=== PATIENT | female | born 1980 | race Caucasian/White ===

== ENCOUNTER 2016-07-05 22:33 | Emergency (ER) | payer MEDICAID ==
[2015-12-09 23:14] VITALS: BMI 22.5
[~2016-07-05 22:33] MED LIST: CARAFATE1 G PO; DOXYCYCLINE HY100 M2 PO; HYDROCODON-ACE1 EAC7 PO; HYDROCODONE-APA1 TAB PO; KLONOPIN1 MG PO; PERCOCET 10/3251 TA1 PO
== END 2016-07-05 23:55 | disposition home or self-care (01) ==
LOC: D.ER 22:33
DX: S93.601A Unspecified sprain of right foot, initial encounter (principal); X58.XXXA Exposure to other specified factors, initial encounter; Y93.89 Activity, other specified; Y92.89 Other specified places as the place of occurrence of the external cause; F17.200 Nicotine dependence, unspecified, uncomplicated

== ENCOUNTER 2016-07-24 19:39 | Emergency (ER) | payer MEDICAID ==
[2015-12-09 23:14] VITALS: BMI 22.5
== END 2016-07-24 22:43 | disposition left against medical advice (07) ==
LOC: D.ER 19:39
DX: T15.92XA Foreign body on external eye, part unspecified, left eye, initial encounter (principal); X58.XXXA Exposure to other specified factors, initial encounter; Y93.89 Activity, other specified; Y92.89 Other specified places as the place of occurrence of the external cause

== ENCOUNTER 2016-11-14 20:48 | Emergency (ER) | payer MEDICAID ==
[2015-12-09 23:14] VITALS: BMI 22.5
== END 2016-11-15 00:02 | disposition home or self-care (01) ==
LOC: D.ER 20:48
DX: M25.462 Effusion, left knee (principal); M25.562 Pain in left knee

== ENCOUNTER 2016-12-02 12:33 | Emergency (ER) | payer MEDICAID ==
[2015-12-09 23:14] VITALS: BMI 22.5
== END 2016-12-02 14:15 | disposition home or self-care (01) ==
LOC: D.ER 12:33
DX: N73.2 Unspecified parametritis and pelvic cellulitis (principal); M54.9 Dorsalgia, unspecified; B19.20 Unspecified viral hepatitis C without hepatic coma; F17.200 Nicotine dependence, unspecified, uncomplicated

== ENCOUNTER 2017-01-06 04:44 | Emergency (ER) | payer MEDICAID ==
[2015-12-09 23:14] VITALS: BMI 22.5
[2017-01-06 05:47] LABS: APPEARANCE CLOUDY (CLEAR); COLOR YELLOW (YELLOW)
[2017-01-06 05:48] LABS: BACTERIA MODERATE /hpf (NONE SEEN); BILIRUBIN NEGATIVE (NEGATIVE); EPITHELIAL CELLS 0-5 /hpf (0-5); GLUCOSE NEGATIVE (NEGATIVE); KETONE NEGATIVE (NEGATIVE); NITRITE POSITIVE (NEGATIVE); PROTEIN NEGATIVE (NEGATIVE); UROBILINOGEN NORMAL (NORMAL); WHITE CELLS - URINE 25-50 /hpf (0-5)
== END 2017-01-06 06:45 | disposition home or self-care (01) ==
LOC: D.ER 04:44
PROVIDERS: Emergency Medicine
DX: N39.0 Urinary tract infection, site not specified (principal); F17.200 Nicotine dependence, unspecified, uncomplicated; B19.20 Unspecified viral hepatitis C without hepatic coma

== ENCOUNTER 2017-01-29 19:44 | Emergency (ER) | payer MEDICAID ==
[2015-12-09 23:14] VITALS: BMI 22.5
[2017-01-29 20:30] LABS: APPEARANCE CLEAR (CLEAR); BILIRUBIN NEGATIVE (NEGATIVE); COLOR YELLOW (YELLOW); GLUCOSE NEGATIVE (NEGATIVE); KETONE NEGATIVE (NEGATIVE); NITRITE NEGATIVE (NEGATIVE); PROTEIN NEGATIVE (NEGATIVE); SPECIFIC GRAVITY 1.015 (1.005-1.020); UROBILINOGEN NORMAL (NORMAL)
== END 2017-01-29 21:05 | disposition home or self-care (01) ==
LOC: D.ER 19:44
PROVIDERS: Family Medicine
DX: R10.9 Unspecified abdominal pain (principal); S39.012A Strain of muscle, fascia and tendon of lower back, initial encounter; X58.XXXA Exposure to other specified factors, initial encounter; Y93.89 Activity, other specified; Y92.019 Unspecified place in single-family (private) house as the place of occurrence of the external cause; B19.20 Unspecified viral hepatitis C without hepatic coma; F17.200 Nicotine dependence, unspecified, uncomplicated

== ENCOUNTER 2017-04-28 19:43 | Emergency (ER) | payer MEDICAID ==
[2015-12-09 23:14] VITALS: BMI 22.5
== END 2017-04-28 21:04 | disposition home or self-care (01) ==
LOC: D.ER 19:43
DX: F45.9 Somatoform disorder, unspecified (principal); F41.9 Anxiety disorder, unspecified; B19.20 Unspecified viral hepatitis C without hepatic coma; F17.200 Nicotine dependence, unspecified, uncomplicated

== ENCOUNTER 2017-05-08 15:09 | Emergency (ER) | payer MEDICAID ==
[2015-12-09 23:14] VITALS: BMI 22.5
== END 2017-05-08 15:59 | disposition home or self-care (01) ==
LOC: D.ER 15:09
DX: F41.9 Anxiety disorder, unspecified (principal); M79.642 Pain in left hand; B19.20 Unspecified viral hepatitis C without hepatic coma

== ENCOUNTER 2017-06-22 22:08 | Emergency (ER) | payer MEDICAID ==
[2015-12-09 23:14] VITALS: BMI 22.5
== END 2017-06-22 23:59 | disposition home or self-care (01) ==
LOC: D.ER 22:08
DX: M25.462 Effusion, left knee (principal); S80.02XA Contusion of left knee, initial encounter; V49.9XXA Car occupant (driver) (passenger) injured in unspecified traffic accident, initial encounter; Y93.89 Activity, other specified; Y92.410 Unspecified street and highway as the place of occurrence of the external cause; B19.20 Unspecified viral hepatitis C without hepatic coma

== ENCOUNTER 2017-06-27 15:15 | Emergency (ER) | payer MEDICAID ==
[2015-12-09 23:14] VITALS: BMI 22.5
== END 2017-06-27 16:53 | disposition home or self-care (01) ==
LOC: D.ER 15:15
DX: M25.462 Effusion, left knee (principal); M25.562 Pain in left knee

== ENCOUNTER → 2017-07-05 07:39 | Outpatient (CLI) | payer MEDICAID ==
[2015-12-09 23:14] VITALS: BMI 22.5
[~2017-07-05 07:39] MED LIST changes: +IBUPROFEN600 MG PO; +ZANTAC 7575 MG
== END | disposition home or self-care (01) ==
LOC: D.MRI 07:39
DX: M25.562 Pain in left knee (principal)

== ENCOUNTER 2017-07-05 13:41 | Emergency (ER) | payer MEDICAID ==
[2015-12-09 23:14] VITALS: BMI 22.5
[~2017-07-05 13:41] MED LIST changes: -IBUPROFEN600 MG PO; -ZANTAC 7575 MG
[2017-08-01] MEDS ORDERED: HYDROCODONE-APA1 TAB PO (08:21)
== END 2017-07-05 15:19 | disposition home or self-care (01) ==
LOC: D.ER 13:41
DX: M25.562 Pain in left knee (principal); B19.20 Unspecified viral hepatitis C without hepatic coma

== ENCOUNTER 2017-08-02 06:52 | Day surgery (SDC) | payer MEDICAID ==
[~2017-08-02] VITALS: Ht 167.6 cm; Wt 65.8 kg
--- NOTE | ~2017-08-02 | OP ---
PATIENT NAME: OLIVER LARA MEDICAL RECORD: [id number] :84 LOCATION:[facility] ADMISSION DATE: SURGEON: BURAK SIERRA MD DATE OF OPERATION: 08/02/2017 PREOPERATIVE DIAGNOSES: Recurrent ACL tear of the left knee, medial meniscus tear. POSTOPERATIVE DIAGNOSES: Recurrent ACL tear of the left knee, lateral meniscal tear, and medial meniscal tear. PROCEDURES: 1. Arthroscopic-assisted anterior cruciate ligament reconstruction - allograft, left knee. 2. Arthroscopic partial medial meniscectomy, left knee. 3. Arthroscopic partial lateral meniscectomy, left knee. SURGEON: Burak Sierra MD ANESTHESIA: General. INTRAOPERATIVE COMPLICATIONS: None. SUMMARY OF PATHOLOGIC FINDINGS: Complex tears of both medial and lateral menisci, consistent with preoperative monitoring on the medial side. The patient did have a complex tear of the lateral meniscus as well. The anterior cruciate ligament previously placed graft was torn completely, also consistent with the MRI. OPERATIVE SUMMARY IN DETAIL: After obtaining the appropriate preoperative orthopaedic surgery consent as well as anesthetic consultation, evaluation, and clearance, the patient was brought to the operating room and placed on the operating table in the supine position. After adequate general laryngeal mask airway was administered, tourniquet was placed about the proximal aspect of left lower extremity. Left lower extremity was then prepped and draped in routine sterile fashion. Leg was elevated, exsanguinated, and tourniquet was inflated to 350 mmHg. Routine inferolateral portal was established followed by superomedial portal and inferomedial portal. 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 All the other findings as discussed above were noted. Attention was first turned to debridement of the old ACL stump. Formal notchplasty was performed as it was at the previous operation. This was cleaned out, making space for the new graft. The medial meniscus was then approached. Combination of resector and meniscotome were utilized to debride the posterior aspect of the medial meniscus off its complex tear. Then, with the leg in a [id number] position, the lateral meniscus likewise required debridement with both meniscotome and arthroscopic resector. Having completed this, the tibial tunnel was created using an 11 baton reamer followed by passage of the spade tip at the anatomic portion on the femoral notch and out the lateral cortex and then through the skin. Having completed this, the low profile 11-mm reamer was used to create a 30-mm deep tunnel. Guide strings were then passed using the Beath pin. The guide strings were then used to pass the graft. The graft seated nicely using the TightRope deployment system from [employer] before anchoring distally. The knee was ranged several times. At this point, incision was elongated. The previous bicortical screw was found and used as a post again. Excellent OPERATIVE REPORT [id number] OLIVER LARA purchase was achieved. The patient's preoperative Henrietta's and pivot shift were negative. Having completed this, incisions were closed in usual fashion. Sterile dressings were applied. Tourniquet was deflated. The patient was awakened and taken to recovery room in stable condition. All final needle and sponge counts were correct. TRANSINT:[id number] Voice Confirmation ID: [id number] DOCUMENT ID: [id number] RIGO REYNA, BURAK SPENCE at 1538 CC: [id number] DICTATION DATE: 08/02/17 1256 TOGGLE PRESS FOLDER AND FEEDER: 08/02/17 1320 [facility] [address] [id number]
[2017-08-02 07:12] LABS: HEMATOCRIT 35.6 % (36.0-48.0); HEMOGLOBIN 11.7 g/dL (12-16); MCH 28.5 pg (26.0-34.0); MCHC 32.9 g/dL (31.0-37.0); MCV 86.8 fL (80.0-100.0); MEAN PLATELET VOLUME 9.8 fL (7.4-10.4); RBC 4.1 10x6/uL (4.00-5.40); RDW 14.4 % (11.5-14.5); WBC 5.7 10x3/uL (4.8-10.8)
[2017-08-02 09:19] VITALS: Ht 167.6 cm; Wt 65.8 kg
[2017-08-02] MEDS ORDERED: ZANTAC 7575 MG (09:32)
[2017-08-02] MEDS ORDERED: HYDROCODONE-APA1 TAB PO (12:50)
== END 2017-08-02 15:00 | disposition home or self-care (01) ==
LOC: D.OPS 06:52 → D.PAN 10:00 → D.OPS 11:30
PROVIDERS: Anesthesiology
DX: S83.512A Sprain of anterior cruciate ligament of left knee, initial encounter (principal); S83.232A Complex tear of medial meniscus, current injury, left knee, initial encounter; S83.272A Complex tear of lateral meniscus, current injury, left knee, initial encounter; Z01.812 Encounter for preprocedural laboratory examination; X58.XXXA Exposure to other specified factors, initial encounter

== ENCOUNTER 2017-08-13 21:41 | Day surgery (SDC) | payer MEDICAID ==
[~2017-08-13] VITALS: Ht 167.6 cm; Wt 70.5 kg
--- NOTE | ~2017-08-13 | OP ---
PATIENT NAME: OLIVER LARA MEDICAL RECORD: [id number] :84 [facility] ADMISSION DATE: SURGEON: DAVE BIRMINGHAM MD DATE OF OPERATION: 08/14/2017 PREOPERATIVE DIAGNOSIS: Right tubal ectopic . POSTOPERATIVE DIAGNOSIS: Right tubal ectopic . PROCEDURE: Laparoscopic right salpingectomy. SURGEON: Dave Birmingham ANESTHESIA: General endotracheal. INTRAVENOUS FLUIDS: Per anesthesia record. ESTIMATED BLOOD LOSS: Approximately 50 cc intraoperatively with 500 cc of blood in pelvis upon entry. SPECIMENS: Included right fallopian tube and products of conception. FINDINGS: 1. Hemoperitoneum noted with bleeding noted from the right fallopian tube. 2. Dilated distal end of the fallopian tube with likely ectopic . 3. Grossly normal-appearing ovaries bilaterally and grossly normal-appearing uterus and left fallopian tube. PROCEDURE: The patient was taken to the operating room, where general anesthesia was achieved without difficulty. The patient was prepped and draped in normal sterile fashion in the dorsal lithotomy position in the [facility]. At this point, a Patel catheter was placed and a sponge stick was placed in the vagina for uterine elevation. Attention was then turned to the umbilicus, where a 5-mm incision was made in the inferior aspect and a 5-mm bladeless trocar was used to enter the intraperitoneal space under direct visualization of the laparoscope. Once placement was confirmed visually, the introducer was removed and the patient was insufflated. Opening pressure was found to be less than 5 mmHg. The patient was insufflated. Of note, was an obvious hemoperitoneum. All other pelvic anatomy could be identified. Irrigation and suction was performed of the hemoperitoneum. Survey was performed of the pelvic anatomy. The right fallopian tube was found to be distended and bleeding from the fimbriated end. At this point, a second port was placed in the midline by making a 5-mm incision approximately 5 cm above the pubic symphysis in the midline. A 5-mm bladeless trocar was then used to enter the intraperitoneal space under direct visualization of the laparoscope. Attention was then turned to the left lower quadrant, where a 10-mm incision was made and the 10-mm bladeless trocar was used to enter the peritoneum under direct visualization. Attention was then turned to the right fallopian tube, was grasped by its distal end with a grasper. A #0 Vicryl Endoloop was then placed into the pelvis through the midline port. The Vicryl Endoloop was then cinched down proximal to the portion of the ectopic and the fallopian tube. The Gyrus bipolar cautery was then used to excise the distal fallopian tube with products of conception distal to the Endoloop placement. An Endobag was then placed in through the left lower quadrant port and the tube with products of conception was then removed intact. Thorough irrigation of the OPERATIVE REPORT [id number] MARCOOLIVER WHITE pelvis was performed and all remnant blood that could be removed was removed. The surgical site was found to be hemostatic. At this point, the patient was desufflated. The surgical site was observed during desufflation with good hemostasis noted. Following desufflation, trocars were removed. The left lower quadrant incision had #0 Vicryl stitch placed into the fascia and then all 3 skin incisions were repaired with interrupted 3-0 Monocryl. The sponge stick was removed. The patient tolerated the procedure well and was transferred to postanesthesia recovery stable without incident. TRANSINT:[id number] Voice Confirmation ID: [id number] DOCUMENT ID: [id number] DAVE BIRMINGHAM MD at 1754 CC: [id number] DICTATION DATE: 09/09/17 1800 HOSPICE PATIENT CARE SECRETARY: 09/09/17 1905 [facility] 08/14/17 [facility] [address] [place] [address]
[~2017-08-13 21:41] MED LIST changes: +ZANTAC 7575 MG
[2017-08-13 22:49] LABS: HCG SERUM POSITIVE (NEGATIVE)
[2017-08-13 22:53] LABS: BASOPHILS 0.1 % (0-2); HEMATOCRIT 30.1 % (36.0-48.0); HEMOGLOBIN 9.9 g/dL (12-16); IMMATURE GRANULOCYTES 0.3 % (0-5); LYMPHOCYTES 12.3 % (15-50); MCH 28.4 pg (26.0-34.0); MCHC 32.9 g/dL (31.0-37.0); MCV 86.5 fL (80.0-100.0); MEAN PLATELET VOLUME 9.6 fL (7.4-10.4); NEUTROPHILS 81.3 % (40-80); PLATELET COUNT 320 10x3/uL (130-400); RBC 3.48 10x6/uL (4.00-5.40); WBC 15.8 10x3/uL (4.8-10.8)
[2017-08-13 22:56] LABS: ALBUMIN 3.5 g/dL (3.4-5.0); ALKALINE PHOSPHATASE 51 U/L (46-116); ALT (SGPT) 25 U/L (10-68); BILIRUBIN - TOTAL 0.26 mg/dL (0.2-1.3); CALC OSMOLALITY 277 mosm/kg (275-300); CALCIUM 8.8 mg/dL (8.5-10.1); CARBON DIOXIDE 27.4 mmol/L (21.0-32.0); CHLORIDE - SERUM 102 mmol/L (98-107); CREATININE - SERUM 0.9 mg/dL (0.6-1.3); POTASSIUM - SERUM 3.7 mmol/L (3.5-5.1); PROTEIN - SERUM 7.7 g/dL (6.4-8.2); SODIUM 137 mmol/L (136-145); UREA NITROGEN 15 mg/dL (7-18); eGFR NON AFRICAN AMERICAN 75 mL/min (90-120)
[2017-08-13 22:57] LABS: APPEARANCE CLEAR (CLEAR); BILIRUBIN NEGATIVE (NEGATIVE); COLOR YELLOW (YELLOW); GLUCOSE NEGATIVE (NEGATIVE); KETONE NEGATIVE (NEGATIVE); NITRITE POSITIVE (NEGATIVE); PROTEIN NEGATIVE (NEGATIVE); SPECIFIC GRAVITY 1.015 (1.005-1.020); UROBILINOGEN NORMAL (NORMAL)
[2017-08-13 22:58] LABS: GLUCOSE 144 mg/dL (74-106)
[2017-08-13 22:58] LABS: BACTERIA MANY /hpf (NONE SEEN); EPITHELIAL CELLS 0-5 /hpf (0-5); RED CELLS - URINE OCC /hpf (0-5); WHITE CELLS - URINE 0-5 /hpf (0-5)
[2017-08-14 05:36] VITALS: BP 102/60
[2017-08-14 05:57] VITALS: BP 102/60; Ht 167.6 cm; Wt 70.5 kg
[2017-08-14 07:53] LABS: BASOPHILS 0.1 % (0-2); EOSINOPHILS 0.2 % (0-7); HEMATOCRIT 30.5 % (36.0-48.0); HEMOGLOBIN 10.2 g/dL (12-16); IMMATURE GRANULOCYTES 0.2 % (0-5); LYMPHOCYTES 5.2 % (15-50); MCH 28.4 pg (26.0-34.0); MCHC 33.4 g/dL (31.0-37.0); MEAN PLATELET VOLUME 9.4 fL (7.4-10.4); MONOCYTES 0.9 % (2-11); NEUTROPHILS 93.4 % (40-80); RBC 3.59 10x6/uL (4.00-5.40); WBC 14.1 10x3/uL (4.8-10.8)
[2017-08-14 08:10] LABS: CALC OSMOLALITY 274 mosm/kg (275-300); CALCIUM 8.1 mg/dL (8.5-10.1); CARBON DIOXIDE 22.6 mmol/L (21.0-32.0); CHLORIDE - SERUM 104 mmol/L (98-107); CREATININE - SERUM 0.7 mg/dL (0.6-1.3); GLUCOSE 133 mg/dL (74-106); POTASSIUM - SERUM 3.8 mmol/L (3.5-5.1); SODIUM 136 mmol/L (136-145); UREA NITROGEN 15 mg/dL (7-18); eGFR NON AFRICAN AMERICAN > 90 mL/min (90-120)
[2017-08-14 08:15] LABS: PLATELET COUNT 229 10x3/uL (130-400)
[2017-08-14] MEDS ORDERED: HYDROCODON-ACE1 EAC7 PO (09:06)
[2017-08-14] MEDS ORDERED: IBUPROFEN600 MG PO (09:07)
== END 2017-08-14 09:45 | disposition home or self-care (01) ==
LOC: D.OPS 21:41 → D.LD 21:41 → D.ER 21:41 → D.LD 08-14 02:38 → D.OPS 08-14 09:45 → D.LD 08-14 15:57
PROVIDERS: Emergency Medicine; Obstetrics & Gynecology
DX: O00.101 Right tubal pregnancy without intrauterine pregnancy (principal); B18.2 Chronic viral hepatitis C; F31.9 Bipolar disorder, unspecified; F41.0 Panic disorder [episodic paroxysmal anxiety]; F43.10 Post-traumatic stress disorder, unspecified; X58.XXXA Exposure to other specified factors, initial encounter; Z88.1 Allergy status to other antibiotic agents; Z88.2 Allergy status to sulfonamides; Z79.891 Long term (current) use of opiate analgesic; Z79.899 Other long term (current) drug therapy; F12.20 Cannabis dependence, uncomplicated